=== PATIENT | female | born 1955 | race Caucasian/White ===

== ENCOUNTER 2021-03-27 11:29 | Emergency (ER) | payer MEDICARE, OTHER, SELFPAY ==
[~2021-03-27] VITALS: Ht 149.9 cm; Wt 81.6 kg
--- NOTE | 2021-03-27 11:32 | NUR ---
Pt brought by daughter, A&Ox4,pt presents to ER with cough/congestion /weakness, pt states she is covid +, skin pink and warm, cap refill <3, VSS, respirations even and unlabored.
[2021-03-27 11:40] VITALS: BP_SYST 115
--- NOTE | 2021-03-27 12:01 | NUR ---
Dr Henry evaluating patient in the tent
[2021-03-27] MEDS ORDERED: METOCLOPRAMIDE HCL 10 MG TABLET PO ONE (12:15)
[2021-03-27] MEDS ORDERED: DIPHENHYDRAMINE HCL 25 MG CAPSULE PO ONE (12:15)
[2021-03-27 12:26] LABS: BASOPHILS % (AUTO) 0.8 % (0.0-2.0); EOSINOPHILS % (AUTO) 1.1 % (0.0-4.0); HEMATOCRIT 41.4 % (36-48); HEMOGLOBIN 13.6 g/dL (12.0-16.0); LYMPHOCYTES # (AUTO) 0.9 K/uL (1.0-5.5); LYMPHOCYTES % (AUTO) 22.9 % (20.5-51.5); MEAN CORPUSCULAR HEMOGLOBIN 30 pg (27-31); MEAN CORPUSCULAR HGB CONC 33 % (32-36); MEAN CORPUSCULAR VOLUME 91 fL (79.0-98.0); MONOCYTES # (AUTO) 0.5 K/uL (0.0-1.0); MONOCYTES % (AUTO) 11.4 % (1.7-9.3); NEUTROPHILS # (AUTO) 2.5 K/uL (1.8-7.7); NEUTROPHILS % (AUTO) 63.8 % (40.0-70.0); PLATELET COUNT (AUTO) 96 K/uL (130-430); RED BLOOD CELL COUNT(AUTO) 4.55 MIL/uL (4.2-6.2); RED CELL DISTRIBUTION WIDTH 14.6 % (9.0-15.0)
--- NOTE | 2021-03-27 13:05 | NUR ---
Pt A&Ox4, VSS,respirations even and unlabored
[2021-03-27 13:15] LABS: CALCIUM 8.7 mg/dL (8.4-11.0); CREATININE 0.49 mg/dL (0.55-1.30); POTASSIUM 3.6 mmol/L (3.5-5.1)
[2021-03-27 13:33] LABS: ALBUMIN 3.7 g/dL (3.4-4.8); TOTAL BILIRUBIN 0.7 mg/dL (0.0-1.0)
[2021-03-27 14:13] VITALS: BP_SYST 115
--- NOTE | 2021-03-27 14:15 | NUR ---
Patient given written and verbal discharge instructions and verbalizes understanding. ER MD discussed with patient the results and treatment provided. Patient in stable condition. ID arm band removed. Rx of Paxlovid given. Patient educated on pain management and to follow up with PMD. Pain Scale 0/10. Opportunity for questions provided and answered. Medication side effect fact sheet provided.
== END 2021-03-27 14:13 | disposition home or self-care (01) ==
LOC: SED 11:29
DX: U07.1 COVID-19 (principal); J12.82 Pneumonia due to coronavirus disease 2019; R51.9 Headache, unspecified; I10 Essential (primary) hypertension; E11.9 Type 2 diabetes mellitus without complications; E78.00 Pure hypercholesterolemia, unspecified; K21.9 Gastro-esophageal reflux disease without esophagitis
CPT/HCPCS: 36415; 71045; 80053; 85025; 99284; J8597; Q0163